=== PATIENT | male | born 1995 | race Two or more races ===

== ENCOUNTER 2025-04-07 11:10 | Emergency (ER) | payer MEDICAID, SELFPAY ==
--- NOTE | 2025-04-07 12:21 | EDNOTE_ITS ---
ED Back Injury Pain RME/HPI General Chief Complaint: Back Pain/Injury Stated Complaint: Lower left back pain, burning left thigh Time Seen by Provider: 04/07/25 12:18 Source: patient (29-year-old male presents to the ED with complaint of pain to his back with radiating pain down his left lower extremity with left sided testi cular pain. This been ongoing x 2 months. Patient recently was lifting) Arrival date/time: 04/07/25 11:10 Mode of arrival: ambulatory Limitations: no limitations RME / HPI MD Complaint: back pain Onset (ago): month(s) (2 months) Duration: constant Similar Symptoms Previously: Yes Location: lumbar spine Severity: severe Quality: sharp and aching Radiation: left leg Severity scale (1-10): 6 Relieving factors: none Exacerbating factors: movement and other (Sitting) Associated symptoms: difficulty walking Related Data Home Medications ?Medication ?Instructions ?Recorded ?Confirmed loratadine 10 mg tablet (Claritin) 10 mg PO QDAY #0 ta bs 09/15/15 Previous Rx's ?Medication ?Instructions ?Recorded cyclobenzaprine 10 mg tablet 10 mg PO HS #20 tabs 03/29 naproxen 500 mg tablet,delayed 500 mg PO BID #30 tabs 04/07/25 release Allergies Allergy/AdvReac Type Severity Reaction Status Date / Time NKA* Allergy Uncoded 04/07/25 11:15 Review of Systems Review of Systems Systems Reviewed: All systems reviewed, normal except as documented Constitutional Constitutional: Reports as per HPI and Reports body ache(s) Respiratory Respiratory: Reports system reviewed and no additional complaints, except as documented Gastrointestinal Gastrointestinal: Reports system reviewed and no additional complaints, except as documented Musculoskeletal Musculoskeletal: Reports as per HPI and Reports abnormal gait Neurologic Neurologic: Reports abnormal gait and Reports localized weakness (Low back left lower extremity) Psychiatric Psychiatric: Reports system reviewed and no additional complaints, except as documented ED Exam Narrative Physical exam: Lumbar spine is tender to palpation left of the spine. Spine appears midline. Straight leg raises left and right elicits low back pain negative for radiculopathy. Patient ambulates without assistance but favors his left lower extremity. Patient is able to flex at the waist however if he misses the floor by approximately 2 feet. General Limitations: Present no limitations General appearance: Present alert and in no apparent distress Head Head exam: Present atraumatic Eye Eye exam: Present normal appearance Rectal Exam Rectal exam: Present deferred Expanded Lower Extremity Exam Hip/Pelvis exam: Present full ROM (Left lower extremity as well as the right dodson ve decreased range of motion secondary to subjective pain. Upon sitting up patient has a greater range of motion with regards to flexion at the waist with the left lower extremity and the deep right) Upper leg exam: Present normal inspection Knee exam: Present normal inspection and tenderness (Tenderness to palpation to his left lower spine at the area of the L4-L5) Back Exam Back exam: Present full ROM (Decreased range of motion secondary to subjective pain.) Neurological Exam Neurological exam: Present alert and oriented X3 Psychiatric Psychiatric exam: Present normal affect and normal mood Skin Skin exam: Present warm, dry and intact Course Course Course Narrative: Patient will have Toradol 30 mg IM and he will be discharged in no apparent distress Quality Measures none Orders Category Date Time Status Ketorolac Inj [Toradol Inj] Med 04/07/25 12:31 Discontinued 30 mg IM X1 ONE Toradol 30 mg IM Vital Signs Vital signs: Vital Signs Temperature 99.2 F 04/07/25 12:27 Pulse Rate 89 04/07/25 12:27 Respiratory Rate 18 04/07/25 12:27 Blood Pressure 132/76 H 04/07/25 12:27 Pulse Oximetry (%) 96 04/07/25 12:27 Oxygen Delivery Method Room Air 04/07/25 12:27 Pulse ox is 96% room air Back Pain / Injury MDM Narrative MDM Narrative:: Patient will be discharged in no apparent distress and he will have Flexeril 10 mg sent to the pharmacy of his choice as well as Naprosyn 500 mg 1 p.o. Q12. Patient is to keep the appointment with his primary care for the MRI of his low back and he may return here as needed. Patient data External records reviewed:: Other (specify) Clinical information provided by:: patient Social determinants that could affect healthcare access:: none Patient has the following chronic illnesses:: LOW BACK PAIN How is presenting disease/condition affected by chronic disease/condition?: exacerbated by (Movement) Evaluation data The following diagnostics were reviewed and interpreted by me:: radiology exam(s) and other (specify) (NA) Lab and/or radiology exams considered but not ordered:: NA Interpretation Summary: NA Medications / Prescriptions Medications or Prescriptions considered but not ordered:: NA Medication administrations:: Medication Administration History Discontinued Medications Ketorolac Tromethamine (Ketorolac Inj 30 Mg/Ml Vial) 30 mg IM X1 ONE Stop: 04/07/25 12:32 NA Consultations Consultation(s) initiated? (list below): No Consultation #1 (Physician, Specialty, Details): NA Diagnosis Differential diagnosis back pain/injury: lumbar radiculopathy, sciatica and strain of lumbar region Most likely diagnosis given after review of the tests above:: NA Admission Indicated Admission indicated?: not indicated Explain why admission is indicated or not indicated:: NA Admission Request Was there a request for admission?: No Disposition Plan Disposition Plan: Discharge Discharge Attestation Discharge Attestation: The patient and all family members were given an opportunity to ask questions and understood the discharge instructions. Discharge instructions specifically effects, indications for sooner follow up or return to the emergency department, and the expected course of current diagnosis. Patient condition: Stable Discharge Plan Plan Patient Disposition: HOME (Self Care) Discharge Disposition comment: Patient to be discharged in no apparent distress Patient condition on transfer: Stable Prescriptions/Referrals Prescriptions/Med Rec: New cyclobenzaprine 10 mg tablet 10 mg PO HS Qty: 20 0RF naproxen 500 mg tablet,delayed release (DR/EC) 500 mg PO BID Qty: 30 0RF No Action loratadine [Claritin] 10 MG tablet 10 mg PO QDAY Qty: 0 Problem List Clinical Impression: Back pain Impression comment: LOW BACK PAIN Patient/Caregiver Discharge Instructions Discharge Activity: activity as tolerated Education Materials: Back Safety: Lifting Print Language: Danish Stand Alone Forms: Sarah Award Info., Patient Portal Info Letter PA/NICKOLAS Supervising Physician EMANI/NICKOLAS Supervising Physician: Geronimo
[2025-04-07 12:27] VITALS: BP 132/76; PULSE 89; RESP 18; TEMP 37.3; O2SAT 96; BMI 27.6
[2025-04-07] MEDS: KETOROLAC INJ 30 MG/ML VIAL IM (12:42)
== END 2025-04-07 13:18 | disposition home or self-care (01) ==
PROVIDERS: Emergency Provider Emergency Medicine
DX: M54.50 Low back pain, unspecified (principal)
CPT/HCPCS: 96372; 99282; J1885